=== PATIENT | male | born 1990 | race Caucasian/White ===

== ENCOUNTER 2019-03-19 11:46 | Emergency (ER) | payer OTHER ==
[~2019-03-19] VITALS: Ht 185.4 cm; Wt 99.8 kg
[2019-03-19 12:04] VITALS: Ht 185.4 cm; Wt 99.8 kg
[2019-03-19 14:03] VITALS: BP 127/76
== END 2019-03-19 14:03 | disposition home or self-care (01) ==
LOC: ED 11:46
DX: M77.51 Other enthesopathy of right foot and ankle (principal)
CPT/HCPCS: 99406; Q0092